=== PATIENT | female | born 2000 | race Caucasian/White ===

== ENCOUNTER 2022-11-16 12:58 | Emergency (ER) | payer SELFPAY ==
[2022-11-16 13:09] VITALS: BP 130/89; PULSE 79; RESP 16; TEMP 36.8; O2SAT 100
--- NOTE | 2022-11-16 13:39 | ED.FEMALEGU ---
HPI - Female Genitourinary General Chief complaint: Urogenital-Female Stated complaint: STD EXPOSURE Time Seen by Provider: 11/16/22 13:35 Source: patient, RN notes reviewed and old records reviewed Mode of arrival: ambulatory Limitations: no limitations History of Present Illness HPI Narrative: 22 year old female who presents to express care with concern for possible exposure to STD this past Thursday when she had unprotected sexual intercourse. patient reports that she received a message from her partner who stated that 'he was feeling uncomfortable and felt off'. Patient reports that she doesn't know what he meant and is a little freaked out about it. Patient reports that she has no symptoms, denies any vaginal drainage or any vaginal odor or any itching. patient reports her last menses was on November 03 and states that she is not on control. patient reports that she doesn't want treatment today wishes to see if test results show any infection. MD elicited complaint: other (possible exposure to STD) Vaginal discharge: none Vaginal bleeding: none Sexual activity: New Sexual Partners Patient : No Date of Last Menstrual Period: 11/03/22 Related Data Home Medications Medication Instructions Recorded Confirmed No Home Medications 11/16/22 11/16/22 Allergies Allergy/AdvReac Type Severity Reaction Status Date / Time Penicillins AdvReac Rash Verified 11/16/22 13:11 Review of Systems Review of Systems: CONSTITUTIONAL: Denies fever, chills, or sweats. CARDIOVASCULAR: Denies chest pain, palpitations, or edema. RESPIRATORY: Denies cough or dyspnea. GASTROINTESTINAL: Denies abdominal pain, nausea, vomiting, or diarrhea. GENITOURINARY: Reports no dysuria, frequency,or urgency. Denies flank pain or hematuria.denies any vaginal discharge or any odor or any itching. SKIN: Denies rash or itching. MUSCULOSKELETAL: Denies back pain or myalgia. Denies CVA tenderness NEUROLOGIC: Denies headache All systems reviewed & are unremarkable except as noted in HPI and below PMFSH Past Medical History Medical History (Updated 11/16/22 @ 15:35 by Elba Brooks NP) No pertinent past medical history Surgical History Surgical History (Updated 11/16/22 @ 15:35 by Elba Brooks NP) No history of previous surgery Social History Social History (Updated 11/16/22 @ 15:10 by Elba Brooks NP) Smoking status: Never smoker Alcohol intake: current Alcohol use details: social Substance use type: does not use Living arrangements: with family Gender identity (if verbalized by the patient): Female Comments At time of signature, agree with nursing past medical, surgical, social and family history. There is no relevant family history pertinent to the presenting complaint Exam Narrative: GENERAL: Well-appearing, well-nourished, and in no acute distress. HEAD: Normocephalic, atraumatic. NECK: Supple.no lymphadenopathy CHEST: Clear to auscultation. No respiratory distress.SAO2 100% on room air HEART: Regular rate and rhythm. No murmur heard. Normal peripheral pulses. ABDOMEN: Soft, nontender, nondistended, normal active bowel sounds. No CVA tenderness, denies any UTI symptoms, no vaginal discharge or odor or any itching EXTREMITIES: Normal range of motion. No edema. SKIN: Warm, dry, no rash. NEURO: No focal deficits. Alert and oriented x3. Course Course Emergency Course: Patient is aware of diagnosis, understands and agrees to treatment plan.? Anticipatory guidance given.? Patient agrees to follow-up as directed and is aware of reasons to seek care at the emergency department. Portions of this record may have been created with voice recognition software Level of Care: Express Care Visit Vital Signs Vital signs: Vital Signs Temperature 36.8 C 11/16/22 13:09 Pulse Rate 79 11/16/22 13:09 Respiratory Rate 16 11/16/22 13:09 Blood Pressure 130/89 11/16/22 13:09 Pulse Oximetry 100
== END 2022-11-16 13:54 | disposition home or self-care (01) ==
PROVIDERS: Emergency Provider Registered Nurse
DX: Z11.3 Encounter for screening for infections with a predominantly sexual mode of transmission (principal)
CPT/HCPCS: 87491; 87591; 87661; 99214; G0463